=== PATIENT | female | born 1990 | race Caucasian/White ===

== ENCOUNTER 2024-06-28 18:25 | Emergency (ER) | payer BC ==
[2024-06-28] MEDS: Diphtheria,Pertussis(Acell),Tetanus Vaccine 0.5 ML Syringe IM ONE (19:21)
[2024-06-28] MEDS: Lidocaine 1% PF 2 ML SDV INJECT ONE (19:21)
== END 2024-06-28 20:36 | disposition home or self-care (01) ==
LOC: MW.ED 18:25
DX: S61.210A Laceration without foreign body of right index finger without damage to nail, initial encounter (principal); Z23 Encounter for immunization; Z79.899 Other long term (current) drug therapy; W26.8XXA Contact with other sharp object(s), not elsewhere classified, initial encounter
CPT/HCPCS: 12001; 90471; 90715; 99282; 99282-25; J3490